=== PATIENT | female | born 1990 | race Caucasian/White ===

== ENCOUNTER 2022-11-27 01:16 | Emergency (ER) | payer MEDICARE, MEDICAID ==
[~2022-11-27] VITALS: Ht 165.1 cm; Wt 77.3 kg
[~2022-11-27 01:16] MED LIST: ASPI1TAB9 PO; FLUT16SP20 BOTHNARES; HYDR-3965 PO; OMEP20CA16 PO; PROM25TA14 PO
[2022-11-27 01:26] VITALS: BP 150/90
[2022-11-27] MEDS ORDERED: morphine 4 MG/ML inj SYRINge IM ONE (01:50)
[2022-11-27] MEDS ORDERED: ondansetron 4mg rapidly disintigrating tab PO ONE (01:50)
[2022-11-27] MEDS ORDERED: acetaminophen 325mg tablet PO ONE (01:50)
[2022-11-27] MEDS ORDERED: HYDROcodone/acetaminophen 10/325mg tab PO ONE (01:50)
[2022-11-27] MEDS ORDERED: HYDR-3965 PO (01:51)
== END 2022-11-27 02:49 | disposition home or self-care (01) ==
LOC: ER 01:16
DX: M25.562 Pain in left knee (principal); G89.29 Other chronic pain; M54.50 Low back pain, unspecified; Z98.51 Tubal ligation status
CPT/HCPCS: 96372; 99284; J2270

== ENCOUNTER 2024-05-17 10:36 | Emergency (ER) | payer MEDICARE, MEDICAID ==
[~2024-05-17] VITALS: Ht 165.1 cm; Wt 74.8 kg
[~2024-05-17 10:36] MED LIST changes: -FLUT16SP20 BOTHNARES; +FLUT16SP35 BOTHNARES
[2024-05-17 11:18] VITALS: BP 108/60; PULSE 82; RESP 18; O2SAT 98
[2024-05-17 12:27] LABS: URINE HCG NEGATIVE (NEG)
[2024-05-17 12:31] LABS: BILIRUBIN,URINE MODERATE (Neg); CLARITY,URINE SLIGHTLY CLOUDY (Clear); COLOR,URINE AMBER (Yellow); GLUCOSE, URINE NEGATIVE (Neg); KETONES,URINE NEGATIVE (Neg); LEUKOCYTE ESTERASE ,URINE MODERATE (Neg); NITRITES, URINE POSITIVE (Neg); OCCULT BLOOD,URINE MODERATE (Neg); PROTEIN,URINE 30 mg/dl (Neg)
[2024-05-17 12:37] LABS: UA COLLECTION TYPE CLN CATCH MIDSTREAM
[2024-05-17 12:39] LABS: BACTERIA,URINE 4+ /HPF (Neg); MUCUS STRANDS MODERATE /LPF (Neg); RBC,URINE 50-100 /HPF (0-2); SQUAMOUS EPITHELIAL CELL,UR MODERATE /LPF (FEW); WBC CLUMPS,URINE MODERATE /HPF (NEGATIVE); WBC,URINE TNTC /HPF (0-4)
[2024-05-17] MEDS ORDERED: CIPR-202 PO (13:10)
[2024-05-17] MEDS: ciprofloxacin 250mg tablet PO ONE (13:25)
[2024-05-17 13:51] VITALS: TEMP 98.6
== END 2024-05-17 13:53 | disposition home or self-care (01) ==
LOC: ER 10:37
DX: N12 Tubulo-interstitial nephritis, not specified as acute or chronic (principal); N39.0 Urinary tract infection, site not specified; G89.29 Other chronic pain; Z79.2 Long term (current) use of antibiotics; Z79.899 Other long term (current) drug therapy; Z79.82 Long term (current) use of aspirin; Z98.51 Tubal ligation status; Z87.19 Personal history of other diseases of the digestive system
CPT/HCPCS: 81001; 81025; 87077; 87088; 87186; 87502; 87503; 99283

== ENCOUNTER 2024-08-08 15:52 | Emergency (ER) | payer MEDICARE, MEDICAID ==
[~2024-08-08] VITALS: Ht 165.1 cm; Wt 72.7 kg
[2024-08-08 16:22] VITALS: BP 124/73; TEMP 99.2
[2024-08-08] MEDS: ibuprofen tablet 400 MG TABLET PO STA (18:47)
[2024-08-08] MEDS: ipratropium/albuterol 3ml nebule NEB STA (19:12)
[2024-08-08 19:14] VITALS: PULSE 92; RESP 18; O2SAT 97
[2024-08-08] MEDS ORDERED: ALBU8HFA PO (19:15)
[2024-08-08 19:23] VITALS: PULSE 91; RESP 16; O2SAT 97
[2024-08-08] MEDS ORDERED: BENZ-38 PO (19:34)
== END 2024-08-08 19:32 | disposition home or self-care (01) ==
LOC: ER 15:53
DX: J22 Unspecified acute lower respiratory infection (principal); R05.9 Cough, unspecified; F17.210 Nicotine dependence, cigarettes, uncomplicated; G89.29 Other chronic pain; M54.9 Dorsalgia, unspecified; Z87.442 Personal history of urinary calculi; Z79.52 Long term (current) use of systemic steroids; Z79.899 Other long term (current) drug therapy; Z98.51 Tubal ligation status
CPT/HCPCS: 71046; 93005; 94640; 99283; Z7610; 94760

== ENCOUNTER 2025-06-01 21:56 | Emergency (ER) | payer MEDICARE, MEDICAID ==
[~2025-06-01] VITALS: Ht 165.1 cm; Wt 90.0 kg
[2025-06-01 21:58] VITALS: BP 147/86
[2025-06-01 22:24] LABS: MEAN PLATELET VOLUME 7.0 FL (7.4-10.4); RED CELL DISTRIBUTION WIDTH 16.7 % (11.5-14.5)
[2025-06-01 22:45] LABS: CREATININE 0.98 MG/DL (0.40-0.90); PRO BRAIN NATRIURETIC PEPTIDE 93 PG/ML (0-125); TOTAL CARBON DIOXIDE 24.2 MMOL/L (24-32); eCRCL 74 ML/MIN; eGFR 66 ML/MIN
--- NOTE | 2025-06-01 22:51 | RADIOLOGY REPORT ---
CHEST RADIOGRAPH Indication: CP Technique: Single frontal view of the chest was obtained COMPARISON: DI CHEST,TWO VIEWS on DOS: 08/08/24 FINDINGS: Cardiac silhouette is borderline in size. Slight prominence of the pulmonary vasculature. Mild hazy opacity at both lung bases. Bones and soft tissues demonstrate no significant abnormality. IMPRESSION: Mild pulmonary venous congestion. Mild hazy opacity both lung bases, nonspecific for atelectasis, edema, or pneumonia.
[2025-06-01 23:24] VITALS: PULSE 89; RESP 16; O2SAT 96
[2025-06-01] MEDS: albuterol 2.5 MG/3 ML nebule NEB ONE (23:24)
[2025-06-01] MEDS: ketorolac trometh 15mg/ml vial 15 MG/ML ML IM ONE (23:27)
[2025-06-01 23:28] LABS: INFLUENZA TYPE A ANTIGEN RAPID NEGATIVE (Negative); INFLUENZA TYPE B ANTIGEN RAPID NEGATIVE (Negative)
[2025-06-01 23:30] VITALS: PULSE 91; RESP 16; O2SAT 100
[2025-06-01] MEDS: guaiFENesin 200mg/20mg codeine phos 10ml UD oral syrup PO ONE (23:30)
[2025-06-01] MEDS ORDERED: BENZ-38 PO (23:34)
[2025-06-01] MEDS ORDERED: ALBU18HF2 INH (23:34)
[2025-06-01] MEDS ORDERED: AZIT-164 PO (23:34)
--- NOTE | 2025-06-01 23:36 | Physician Documentation ---
History of Present Illness General Chief Complaint: Chest Pain Stated Complaint: SOB/CP Time Seen by MD: 22:35 Primary Medical Doctor: Basil History of Present Illness Initial Comments 34-year-old female who presents to the emergency department with complaint of chest and back discomfort associated with cough productive sputum and fever. Reports symptoms have been present since after receiving influenza vaccination. Reports that she is a long-time smoker. Patient has recently been placed on Lasix forced him dependent edema. She has no orthopnea or dyspnea on exertion. Denies recent travels or hospitalizations. Denies known ill contacts. Medication Reconciliation Allergies: Coded Allergies: ketorolac (Verified Adverse Reaction, Mild, GI upset, 06/01/25) Scheduled Azithromycin (Zithromax), 1 TAB PO DAILY Benzonatate* (Benzonatate*), 1-2 CAP PO Q6H Fluticasone Propionate (Fluticasone Propionate), 2 SPRAYS BOTHNARES DAILY, (Reported) Omeprazole (Omeprazole), 1 CAP PO DAILY, (Reported) Scheduled PRN Albuterol Sulfate (Ventolin Hfa), 2 PUFFS INH Q4HPRN PRN for wheezing Aspirin/Acetaminophen/Caffeine (Excedrin Migraine Caplet), 1 TAB PO Q8H PRN for headache, (Reported) Hydrocodone Bit/Acetaminophen 5/325 MG ([place] 5/325 MG), 1 TAB PO BID PRN for pain, (Reported) Promethazine HCl (Promethazine HCl), 1-2 TAB PO TID PRN for nausea/vomiting, (Reported) Past Medical History Past Medical History: Gastritis, Kidney Stones, Chronic Back Pain Past Surgical History: orthopedic surgeries, tubal ligation Alcohol Use: None Drug Use: none Lives with: Family Lives In: Home Review of Systems All Other Systems at this time: Reviewed and Negative Constitutional: Reports: fever, chills, weakness RESP: Reports: short of breath, cough, sputum; Denies: orthopnea CV: Reports: chest pain, edema; Denies: palpitations Musc: Reports: back pain Physical Exam Physical Exam Vital Signs: RN Vital Signs have been reviewed: Yes, Temperature: 100.3, Source: Oral, Heart Rate: 89, Respiratory Rate: 16, BP: 147/86, Pulse Oximetry: 96, Weight: 90.000 Oxygen Flow Rate: 0 General Appearance: alert, WD/WN, ill-appearing, mild distress Head: normal inspection Face: normal inspection Pupils/EOM/Fundus: PERRLA Ear: auricle normal Oropharynx: normal inspection Neck: non-tender; No: meningeal signs Respiratory: decreased breath sounds, other (Decreased forced expiratory volume) Chest: no accessory muscle use Cardiovascular: normal peripheral pulses, regular rate, rhythm Gastrointestinal: non-tender Back: normal inspection, no CVA tenderness Extremities: normal range of motion, swelling (Trace swelling that has been improved since beginning Lasix) Neurologic: oriented x4, 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 (06/01/25 23:15) * Rt Notification Q1H (06/01/25 23:11) Acetaminophen 325mg Tablet (Tylenol Tabl (06/01/25 23:25) Vital Signs 06/01/25 06/01/25 06/01/25 06/02/25 21:58 23:24 23:30 00:01 Temp 100.3 99.5 Pulse 101 89 91 88 Resp 20 16 16 16 B/P (MAP) 147/86 Pulse Ox 100 96 100 97 O2 Delivery Room Air* Room Air* O2 Flow Rate 0 0 0 FiO2 21 21 Laboratory Tests Test 06/01/25 22:14 06/01/25 23:00 White Blood Count 11.3 H Red Blood Count 4.48 Hemoglobin 10.9 L Hematocrit 34.1 L Mean Corpuscular Volume 76.3 L Mean Corpuscular Hemoglobin 24.4 L Mean Corpuscular Hemoglobin Concent 32.0 L Red Cell Distribution Width 16.7 H Platelet Count 218 Mean Platelet Volume 7.0 L Neutrophils (%) (Auto) 90.9 H Lymphocytes (%) (Auto) 4.7 L Monocytes (%) (Auto) 4.2 Eosinophils (%) (Auto) 0.1 Basophils (%) (Auto) 0.1 Neutrophils # (Auto) 10.2 H Lymphocytes # (Auto) 0.5 L Monocytes # (Auto) 0.5 Eosinophils # (Auto) 0.0 Basophils # (Auto) 0.0 CBC Comment Sodium Level 136 Potassium Level 4.1 Chloride Level 104 Carbon Dioxide Level 24.2 Anion Gap 8 Blood Urea Nitrogen 6 L Creatinine 0.98 H Estimated GFR/1.73 m2 66 BUN/Creatinine Ratio 6.1 L Glucose Level 116 H Calcium Level 8.6 Troponin I High Sensitivity < 4 L Troponin I High Sens Percent Delta Troponin I Hi Sens Absolute Change Pro-B-Type Natriuretic Peptide 93 Albumin 3.9 Chemistry Comments Influenza Type A Antigen Negative Influenza Type B Antigen Negative SARS-CoV-2 Antigen (Rapid) Negative Medical Decision Making Additional information obtaine: family Findings 34-year-old female presents to the emergency department with shortness of breath likely that a bacterial etiology as evidenced by your chest x-ray and physical exam. We will go ahead and provide 1st dose antibiotic, albuterol DuoNeb for which she responded well to increasing forced expiratory volume, Robitussin with codeine for cough and Tylenol. Outpatient management will include azithromycin, Tessalon Perles and Ventolin inhaler. Patient had improvement while in the emergency department. Chest x-ray with pneumonia findings per the radiologist, EKG both evaluated and/or reassuring. Screening labs also reassuring. COVID screening negative influenza screening negative likely making this bacterial in etiology that is the antibiotic therapy along with me a long-time smoker. Differential Diagnosis Differential diagnosis include acute coronary syndrome, congestive heart failure and/or pulmonary edema however no likely. No clinical suspicion for pulmonary embolus with clinical finding and diagnostic imaging consistent with early pneumonia. Patient understands to strict aftercare instructions and to return if shortness of breath worsens and/or he is without resolution or follow up. Departure Disposition: HOME / SELF CARE / HOMELESS Impression: Primary Impression: Pneumonia Qualified Codes: J18.9 - Pneumonia, unspecified organism Additional Impression: Pulmonary congestion Condition: Improved Discharge Instructions: Community-Acquired Pneumonia, Adult Additional Instructions: Please continue with your scheduled medications. Your primary care physician obtain prescriptions and begin as directed. Your x-ray imaging tonight and clinical presentation is consistent with early bacterial pneumonia. Please return to the emergency department for worsening shortness of breath cough or fever. Thank you for visiting the emergency department of [facility]. Referrals: NO PRIMARY CARE PROVIDER (PCP) Prescriptions Benzonatate* (Benzonatate*) 100 Mg Capsule 1-2 CAP PO Q6H, #30 CAP Prov: OLGA DUFF 06/01/25 Albuterol Sulfate (Ventolin Hfa) 90 Mcg Hfa.aer.ad 2 PUFFS INH Q4HPRN PRN for wheezing for 30 Days, #18 GM 0 Refills Prov: OLGA DUFF 06/01/25 Azithromycin (Zithromax) 250 Mg Tablet 1 TAB PO DAILY, #6 TAB azithromycin z pack as directed in packaging Prov: OLGA DUFF 06/01/25 Education Educated: Patient, Family Educated regarding: diagnosis, treatment, prognosis Signature Scribe Signature: . Attestation: . OLGA DUFF Jun 01, 2025 23:36
[2025-06-02 00:01] VITALS: PULSE 88; RESP 16; TEMP 99.5; O2SAT 97
--- NOTE | 2025-06-02 05:03 | ELECTROCARDIOGRAPH REPORT ---
[facility] Test Date: 2025-06-01 Test Time: 21:59:23 Pat Name: TATA HUNTER Department: EMERGENCY ROOM Room: Gender: F Benefits Consultant: GUSTAVO : 1990 Requested By: LIZ SEGAL Order Number: [id number] Reading MD: Measurements Intervals [place] Rate: 98 P: 58 NM: 138 QRS: 92 QRSD: 88 T: 54 QT: 357 QTc: 456 Interpretive Statements Sinus rhythm Borderline right axis deviation Please click the below link to view image of tracing.
== END 2025-06-02 00:06 | disposition home or self-care (01) ==
LOC: ER 21:57
DX: J18.9 Pneumonia, unspecified organism (principal); R09.89 Other specified symptoms and signs involving the circulatory and respiratory systems; G89.29 Other chronic pain; Z98.51 Tubal ligation status; Z87.19 Personal history of other diseases of the digestive system; Z87.442 Personal history of urinary calculi; Z88.8 Allergy status to other drugs, medicaments and biological substances; Z79.899 Other long term (current) drug therapy; Z98.890 Other specified postprocedural states; Z20.822 Contact with and (suspected) exposure to COVID-19
CPT/HCPCS: 36415; 71045; 80048; 83880; 84484; 85025; 87804; 87811; 93005; 94760; 99285

== ENCOUNTER 2025-07-23 00:03 | Emergency (ER) | payer MEDICARE, MEDICAID ==
[~2025-07-23] VITALS: Ht 165.1 cm; Wt 98.7 kg
[~2025-07-23 00:03] MED LIST changes: +ALBU18HF2 INH
[2025-07-23 00:26] LABS: MEAN PLATELET VOLUME 7.0 FL (7.4-10.4); RED CELL DISTRIBUTION WIDTH 15.6 % (11.5-14.5)
--- NOTE | 2025-07-23 01:33 | Physician Documentation ---
History of Present Illness ~ Chief Complaint: Chest Pain Stated Complaint: CHEST DISCOMFORT Time Seen by MD: 01:06 Primary Medical Doctor: Basil YEAGER Patient presents to the emergency room with chief complaint of being swollen. She did speak to her primary care provider regarding this was put on hydrochlorothiazide without effect. She then followed up at [facility] who put her on a course of Lasix but she has not noticed any improvement. No additional changes of medication. She endorses occasional shortness of breath. She continues to smoke. Symptoms are bilateral Medication Reconciliation Allergies: Coded Allergies: ketorolac (Verified Adverse Reaction, Mild, GI upset, 06/01/25) Scheduled Fluticasone Propionate (Fluticasone Propionate), 2 SPRAYS BOTHNARES DAILY, (Reported) Omeprazole (Omeprazole), 1 CAP PO DAILY, (Reported) Scheduled PRN Albuterol Sulfate (Ventolin Hfa), 2 PUFFS INH Q4HPRN PRN for wheezing Aspirin/Acetaminophen/Caffeine (Excedrin Migraine Caplet), 1 TAB PO Q8H PRN for headache, (Reported) Hydrocodone Bit/Acetaminophen 5/325 MG ([place] 5/325 MG), 1 TAB PO BID PRN for pain, (Reported) Promethazine HCl (Promethazine HCl), 1-2 TAB PO TID PRN for nausea/vomiting, (Reported) Past Medical History Past Medical History: Gastritis, Kidney Stones, Chronic Back Pain Past Surgical History: orthopedic surgeries, tubal ligation Alcohol Use: None Drug Use: none Lives with: Family Lives In: Home Review of Systems ROS All review of systems negative except as per HPI Physical Exam Vital Signs: Temperature: 98.3, Source: Oral, Heart Rate: 68, Respiratory Rate: 18, BP: 149/74, Pulse Oximetry: 99, Weight: 98.700 Oxygen Flow Rate: 0 General Appearance General: Patient is awake, alert, oriented x4 in no acute distress Head: Normocephalic and atraumatic. Eyes: Conjunctival normal. EOMI. PERRL. ENT: Mucous membranes moist. Neck: Supple, trachea is midline. Chest: Clear to auscultation bilaterally without rales, rhonchi, or wheezes. There is no accessory muscle use or retractions. Cardiac: RRR without murmurs, gallops, or rubs. Abd: Soft, nondistended, nontender, with normoactive bowel sounds. No guarding, rebound, or rigidity. Extremities: Normal strength. Normal range of motion. Trace bilateral edema without erythema Progress Results/Orders Results/Orders Orders - MARCELO VALDEZ MD Chest,Single View (07/23/25 00:20) Monitor (07/23/25 00:05) Saline Lock (07/23/25 00:05) Oxygen (07/23/25 00:05) Electrocardiogram (07/23/25 00:05) Hs Troponin I W Calculations (07/23/25 02:05) Hs Troponin I W Calculations (07/23/25 03:05) Completed Orders - MARCELO VALDEZ MD Chest,Single View (07/23/25 00:20) Cbc/Diff (07/23/25 00:05) BMP (07/23/25 00:05) PBNP (07/23/25 00:05) Hs Troponin I W Calculations (07/23/25 00:05) TSH (07/23/25 00:09) Vital Signs 07/23/25 00:06 Temp 98.3 Pulse 68 Resp 18 B/P (MAP) 149/74 Pulse Ox 99 O2 Flow Rate 0 Laboratory Tests Test 07/23/25 00:09 07/23/25 01:37 White Blood Count 6.6 Red Blood Count 3.88 L Hemoglobin 9.9 L Hematocrit 29.8 L Mean Corpuscular Volume 76.9 L Mean Corpuscular Hemoglobin 25.5 L Mean Corpuscular Hemoglobin Concent 33.2 Red Cell Distribution Width 15.6 H Platelet Count 246 Mean Platelet Volume 7.0 L Neutrophils (%) (Auto) 51.6 Lymphocytes (%) (Auto) 36.8 Monocytes (%) (Auto) 5.2 Eosinophils (%) (Auto) 5.7 Basophils (%) (Auto) 0.7 Neutrophils # (Auto) 3.4 Lymphocytes # (Auto) 2.4 Monocytes # (Auto) 0.3 Eosinophils # (Auto) 0.4 Basophils # (Auto) 0.0 CBC Comment Sodium Level 139 Potassium Level 4.2 Chloride Level 104 Carbon Dioxide Level 26.9 Anion Gap 8 Blood Urea Nitrogen 9 Creatinine 1.12 H Estimated GFR/1.73 m2 56 BUN/Creatinine Ratio 8.0 L Glucose Level 99 Calcium Level 8.5 Troponin I High Sensitivity < 4 L Troponin I High Sens Percent Delta Troponin I Hi Sens Absolute Change Pro-B-Type Natriuretic Peptide 162 H Albumin 3.6 Thyroid Stimulating Hormone (TSH) 3.87 Chemistry Comments Medical Decision Making Additional information obtaine: old records Findings Patient presents to the emergency room for evaluation of edema as per HPI. Differentials include but are not limited to heart failure, kidney failure, hypoalbuminemia, [place]'s therefore emergent labs ordered which were reassuring. Patient's symptoms has been going on for months and are considered chronic and he had not feel she is suffering from medical emergency. The need to follow up with her doctor discussed. Although considered he had not believe patient's symptoms are secondary to DVT furthermore we are able to obtain medical records from [facility] where D-dimer was performed which was positive followed by ultrasound of the lower extremities which was negative for DVT. That has he had not feel she requires repeat ultrasound that has she has already had this performed in symptoms are chronic in nature. Patient's edema is trace. Possibly psychogenic. Albumin reassuring. Heart Score: 2 Differential Dx:Considerations: Include: angina, aortic dissection, chest wall pain, cholelithiasis, CHF, costochondritis, esophageal reflux/spasm, gastritis, herpes zoster, myocardial infarction, pericarditis, pleuritis, pancreatitis, pneumonia, pneumothorax, pulmonary embolus, other Departure Disposition: 01 HOME / SELF CARE / HOMELESS Impression: Primary Impression: Edema Condition: Stable Discharge Instructions: Edema, [id number] Referrals: NO PRIMARY CARE PROVIDER (PCP) Signature Scribe Signature: No scribe Attestation: The note accurately reflects work and decisions made by me.Marcelo Valdez MD 07/23/25 01:33 MARCELO VALDEZ MD Jul 23, 2025 01:33
[2025-07-23 01:58] LABS: CREATININE 1.12 MG/DL (0.40-0.90); PRO BRAIN NATRIURETIC PEPTIDE 162 PG/ML (0-125); TOTAL CARBON DIOXIDE 26.9 MMOL/L (24-32); eCRCL 64 ML/MIN; eGFR 56 ML/MIN
--- NOTE | 2025-07-23 02:39 | RADIOLOGY REPORT ---
CHEST RADIOGRAPH INDICATION: CP TECHNIQUE: Single frontal view of the chest was obtained COMPARISON: DI CHEST,SINGLE VIEW on DOS: 06/01/25, DI CHEST,TWO VIEWS on DOS: 08/08/24 FINDINGS: Lines and Tubes: None Lungs: Clear Pleura: No effusion. No pneumothorax. Cardiomediastinal contours: Unremarkable Bones: Unremarkable IMPRESSION: 1. No acute disease.
[2025-07-23 03:00] LABS: APTT 26 SECONDS (22-32)
[2025-07-23 03:30] VITALS: BP 141/76; PULSE 62; RESP 15; TEMP 98.3; O2SAT 99
--- NOTE | 2025-07-23 09:34 | ELECTROCARDIOGRAPH REPORT ---
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 JEREMIAS Olivo Measurements Intervals [place] Rate: 63 P: 27 PA: 159 QRS: 74 QRSD: 97 T: 58 QT: 439 QTc: 450 Interpretive Statements Sinus rhythm Electronically Signed On 07-24-2025 18:10:[address] JEREMIAS Olivo Please click the below link to view image of tracing.
== END 2025-07-23 03:32 | disposition home or self-care (01) ==
LOC: ER 00:04
DX: R60.9 Edema, unspecified (principal); R07.9 Chest pain, unspecified; F17.200 Nicotine dependence, unspecified, uncomplicated; G89.29 Other chronic pain; Z98.51 Tubal ligation status; Z87.442 Personal history of urinary calculi; Z87.19 Personal history of other diseases of the digestive system; Z88.8 Allergy status to other drugs, medicaments and biological substances; Z79.899 Other long term (current) drug therapy; Z98.890 Other specified postprocedural states
CPT/HCPCS: 36415; 71045; 80048; 83880; 84443; 84484; 85025; 85730; 93005; 99285